=== PATIENT | male | born 1980 | race Caucasian/White ===

== ENCOUNTER 2018-06-08 10:30 | Outpatient (RCR) | payer MEDICARE, OTHER, MEDICAID, SELFPAY ==
--- NOTE | 2018-04-25 13:20 | PT.OIE ---
Current Diagnoses Low back pain (04/25/18) Provider Visit Care Team Role Provider Type Dariela Garcia PA-C Attending Provider Advanced Practioner Clinician Family Provider Primary Care Provider Specialty: Internal Medicine Address: [address] [place] [address], [facility] Email: Physical Therapy Initial Evaluation PT-OP-A Visit Information Start: 04/25/18 10:30 Freq: Status: Active Protocol: Document 04/25/18 10:35 EA (Rec: 04/25/18 11:16 EA [id number]) Out-Patient Physical Therapy Visit Information Visit Information Visit Type Initial Evaluation Visit Start Time 09:45 Visit Stop Time 09:15 Total Visit Minutes 30 Visit Number 1 Evaluation Information Evaluation Date 04/25/18 PT-OP-B Current Condition Start: 04/25/18 10:30 Freq: Status: Active Protocol: Document 04/25/18 10:35 EA (Rec: 04/25/18 11:16 EA [id number]) Current Condition History of Current Condition Onset Date 2 months ago Current Complaints Right upper lumbar localized dull aching pain. History of Current Condition Present condition started 2 months ago with no history of injury; states pain suddenly appeared in the morning upon waking up. Pain initially is mild and intinsified 2 weeks after the onset. Patient reports went to see her doctor and given mucle relaxant and feels it helps in the past few days. Patient reports morning back stiffness with pain and slolwy decrease once mobilize during the day. No x-ray or imaging performed. Current diagnosis: depression, Bipolar p/d, hypothyroid Prior Treatments and Tests Pain medication (ongoing): see chart for meds. 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 Prior Functional Status Baseline Function- ADL's Independent Baseline Function- Mobility Independent Current Functional Impairments (Reported) Functional Limitations- ADL's Indep with increased time. Personal Factors Other Personal Factors That May Effect Depression Therapy/Recovery PT-OP-C Subjective Start: 04/25/18 10:30 Freq: Status: Active Protocol: Document 04/25/18 10:35 EA (Rec: 04/25/18 11:16 EA [id number]) OP-PT Subjective Patient Comments Patient Comments C/O of bed mobility, bending, and lifting difficulty due to intermittent localized dull pain to right upper lumbar rated 7/10 at worst and 3/10 at best. Patient Reported Progress Improving Patient Questionnaires Oswestry Low Back Index Oswestry Score 6 Oswestry Impairment 1 to 19% Impaired (Score 1-19) OP-PT Pain Assessment Location Right Lower Back Intensity 3 Scale Used Numeric (1 - 10) Description Dull Frequency Intermittent Pain Aggravating Factors ADL's Bending Lifting Pain Alleviating Factors Inactivity Rest Patient Stated Pain Goal 0 PT-OP-F Manual Assessment Start: 04/25/18 10:30 Freq: Status: Active Protocol: Document 04/25/18 11:45 EA (Rec: 04/25/18 13:10 EA [id number]) Manual Assessments Soft Tissue Assessment Soft Tissue Mobility Assessment Soft tissue tightness to both lumbar side flexors, lumbar flexors, QL; Hip flexors, hamstrings and IT band Joint Mobility Assessment Joint Mobility Assessment Limited right AP joint glide. PT-OP-H Neuro Start: 04/25/18 10:30 Freq: Status: Active Protocol: Document 04/25/18 11:45 EA (Rec: 04/25/18 13:10 EA [id number]) Sensation Evaluation Gross Sensation Gross Sensation WNL PT-OP-J Posture/Palpation/Skin Start: 04/25/18 10:30 Freq: Status: Active Protocol: Document 04/25/18 11:45 EA (Rec: 04/25/18 13:10 EA [id number]) Posture Evaluation Position Standing Evaluation View Post/lateral L-Spine Posture Increased Lordosis Pelvis Posture Anteriorly Tilted Palpation Assessment Location One Palpation Location Right paralumabrs, QL Palpation Findings Soft Tissue Tightness Tenderness PT-OP-K Range of Motion Start: 04/25/18 10:30 Freq: Status: Active Protocol: Document 04/25/18 11:45 EA (Rec: 04/25/18 13:10 EA [id number]) Lumbar Spine Range of Motion Lumbar Spine Active Degrees Testing Position standing Flexion 45 Extension 30 Rotation Left 40 Rotation Right 40 Lateral Flexion Left 18 Lateral Flexion Right 20 ROM Limitations Soft Tissue Tightness Comments Pain increased with left bending. PT-OP-L Special Tests Start: 04/25/18 10:30 Freq: Status: Active Protocol: Document 04/25/18 11:45 EA (Rec: 04/25/18 13:10 EA [id number]) Special Tests Lumbar Spine Special Tests Niranjan Test Results tight rectus femoris Straight Leg Raise Test Results Pain localized to lumbar at 45 degrees active Standing Flexion Test Results aggravates symptoms Hip Special Tests Piriformis Test Results tight piriformis PT-OP-M Strength Start: 04/25/18 10:30 Freq: Status: Active Protocol: Document 04/25/18 11:45 EA (Rec: 04/25/18 13:10 EA [id number]) Trunk Strength Trunk Manual Muscle Testing Flexion 3- Fair- Extension 3 Fair Rotation Left 3 Fair Rotation Right 3 Fair Lateral Flexion Left 3 Fair Lateral Flexion Right 3 Fair PT-OP-T Assessment and Plan Start: 04/25/18 10:30 Freq: Status: Active Protocol: Document 04/25/18 11:45 EA (Rec: 04/25/18 13:10 EA [id number]) Physical Therapy Assessment Rehab Potential Rehabilitation Potential Good Evaluation Complexity Number of Personal Factors/Comorbidities 1-2 Number of Body Systems Impaired 1-2 Clinical Presentation at Evaluation Stable Impairments Impairments Activity Tolerance Pain Posture ROM Strength Other Concerns Barriers to Rehabilitation depression Goals Four Impairment Weakness to lumbar flexors and side flexors Intermediate Goal (LTG) Patient will exhibit gross MMT to Lumbar flexors, side flexors with at least 4/5 LTG Duration 4 wks Three Impairment Pain scale of 3/10 at best Intermediate Goal (LTG) Patient will report low back PS of 0/10 LTG Duration 4 wks Two Impairment Decreased Lumbosacral SF, Flexion ROM Intermediate Goal (LTG) Patient will increase lumbar ROM without discomfort to enhance functional mobility LTG Duration 4 wks One Impairment Grade 2 tenderness to right paralumbars and QL Intermediate Goal (LTG) Patient will exhibit no tenderness to right paralumbars and QL LTG Duration 4 wks Assessment Summary Assessment Pleasant 37 y/o male patient who exhibits signs and symptoms consistent with lumbar strain with possible facet joint involvement but no neurogenic involvement. Patient Limited ROM and strength with pain/ discomfort limits patient's ability to perform usual ADLs. Bending, lifting and prolong sitting are some of the activities that are impaired at this time. Patient will benefit with skilled PT to address the above mentioned deficits and reach high functional mobility without limitation. Physical Therapy Plan Frequency and Duration Frequency of Treatment 2x/Week Plan of Care Start Date 04/25/18 Plan of Care End Date 06/19/18 Therapeutic Interventions Therapeutic Interventions Home Exercise Program Joint Mobilizations Manual Therapy Self-Care/Home Management Soft Tissue Mobilization Modalities Cold Pack/Ice Massage Electric Stimulation Hot Packs Traction- Mechanical Ultrasound Next Visit Focus/Plan Next Note Type Treatment Note Next Visit Plan Provide HEP. Decrease symptoms , improve lumbar ROM. Please Sign and Return: I have reviewed this Plan of Care and certify that the skilled therapy services above are required to meet the patient?s needs. Physician Signature Date Printed Name and Credentials Clinical Instructor Signature Printed Name and Credentials
--- NOTE | 2018-05-02 15:08 | PT.OTN ---
Current Diagnoses Low back pain (05/02/18) Physical Therapy Treatment Note PT-OP-A Visit Information Start: 04/25/18 10:30 Freq: Status: Active Protocol: Document 05/02/18 13:34 EA (Rec: 05/02/18 13:43 EA [id number]) Out-Patient Physical Therapy Visit Information Visit Information Visit Type Treatment Note Total Visit Minutes 58 Visit Number 2 PT-OP-B Current Condition Start: 04/25/18 10:30 Freq: Status: Active Protocol: Document 04/25/18 10:35 EA (Rec: 04/25/18 11:16 EA [id number]) Current Condition History of Current Condition Onset Date 2 months ago Current Complaints Right upper lumbar localized dull aching pain. History of Current Condition Present condition started 2 months ago with no history of injury; states pain suddenly appeared in the morning upon waking up. Pain initially is mild and intinsified 2 weeks after the onset. Patient reports went to see her doctor and given mucle relaxant and feels it helps in the past few days. Patient reports morning back stiffness with pain and slolwy decrease once mobilize during the day. No x-ray or imaging performed. Current diagnosis: depression, Bipolar p/d, hypothyroid Prior Treatments and Tests Pain medication (ongoing): see chart for meds. 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 Prior Functional Status Baseline Function- ADL's Independent Baseline Function- Mobility Independent Current Functional Impairments (Reported) Functional Limitations- ADL's Indep with increased time. Personal Factors Other Personal Factors That May Effect Depression Therapy/Recovery PT-OP-C Subjective Start: 04/25/18 10:30 Freq: Status: Active Protocol: Document 05/02/18 13:34 EA (Rec: 05/02/18 13:43 EA [id number]) OP-PT Subjective Patient Comments Patient Comments Patient reports low back pain still present. PT-OP-F Manual Assessment Start: 04/25/18 10:30 Freq: Status: Active Protocol: Document 04/25/18 11:45 EA (Rec: 04/25/18 13:10 EA [id number]) Manual Assessments Soft Tissue Assessment Soft Tissue Mobility Assessment Soft tissue tightness to both lumbar side flexors, lumbar flexors, QL; Hip flexors, hamstrings and IT band Joint Mobility Assessment Joint Mobility Assessment Limited right AP joint glide. PT-OP-H Neuro Start: 04/25/18 10:30 Freq: Status: Active Protocol: Document 04/25/18 11:45 EA (Rec: 04/25/18 13:10 EA [id number]) Sensation Evaluation Gross Sensation Gross Sensation WNL PT-OP-J Posture/Palpation/Skin Start: 04/25/18 10:30 Freq: Status: Active Protocol: Document 04/25/18 11:45 EA (Rec: 04/25/18 13:10 EA [id number]) Posture Evaluation Position Standing Evaluation View Post/lateral L-Spine Posture Increased Lordosis Pelvis Posture Anteriorly Tilted Palpation Assessment Location One Palpation Location Right paralumabrs, QL Palpation Findings Soft Tissue Tightness Tenderness PT-OP-K Range of Motion Start: 04/25/18 10:30 Freq: Status: Active Protocol: Document 04/25/18 11:45 EA (Rec: 04/25/18 13:10 EA [id number]) Lumbar Spine Range of Motion Lumbar Spine Active Degrees Testing Position standing Flexion 45 Extension 30 Rotation Left 40 Rotation Right 40 Lateral Flexion Left 18 Lateral Flexion Right 20 ROM Limitations Soft Tissue Tightness Comments Pain increased with left bending. PT-OP-L Special Tests Start: 04/25/18 10:30 Freq: Status: Active Protocol: Document 04/25/18 11:45 EA (Rec: 04/25/18 13:10 EA [id number]) Special Tests Lumbar Spine Special Tests Niranjan Test Results tight rectus femoris Straight Leg Raise Test Results Pain localized to lumbar at 45 degrees active Standing Flexion Test Results aggravates symptoms Hip Special Tests Piriformis Test Results tight piriformis PT-OP-M Strength Start: 04/25/18 10:30 Freq: Status: Active Protocol: Document 04/25/18 11:45 EA (Rec: 04/25/18 13:10 EA [id number]) Trunk Strength Trunk Manual Muscle Testing Flexion 3- Fair- Extension 3 Fair Rotation Left 3 Fair Rotation Right 3 Fair Lateral Flexion Left 3 Fair Lateral Flexion Right 3 Fair PT-OP-Q Treatments Start: 04/25/18 10:30 Freq: Status: Active Protocol: Document 05/02/18 13:34 EA (Rec: 05/02/18 13:43 EA [id number]) Cardio Equipment Recumbent Stepper (Sci-Fit) Duration (Minutes) 5 Resistance 2 Therapeutic Exercises Supine Exercises 1 Supine Exercise Name Knee to chest single to bilateral Reps/Minutes x 15 SH x 3 reps Sitting Exercises 1 Sitting Exercise Name Low back stretch Reps/Minutes x 15 SH x 3 reps Comments Floor reaching Standing Exercises 1 Standing Exercise Name R QL stretch Reps/Minutes x 30SH x 2 reps Manual Therapy Treatment Soft Tissue Mobilization 1 Body Location Right palumbars Intensity/Depth Moderate Body Position Prone Self-Care/Home Management Treatment Education Patient Education Body Mechanics Home Exercise Program Joint Protection Pain Management Posture PT-OP-R Modalities Start: 04/25/18 10:30 Freq: Status: Active Protocol: Document 05/02/18 13:34 EA (Rec: 05/02/18 13:43 EA [id number]) Electric Stimulation Electric Stimulation Interferential Current (IFC) Body Location right paralumbars/QL Duration (Minutes) 15 Patient Position Prone Combined With Heat/Cold Hot Pack Ultrasound Therapy Treatment Right Back Treatment Duration (minutes) 8 Frequency Setting (mHz) 1 Intensity Setting (w/cm2) 1.2 Comments Paralumbars PT-OP-T Assessment and Plan Start: 04/25/18 10:30 Freq: Status: Active Protocol: Document 05/02/18 13:34 EA (Rec: 05/02/18 13:43 EA [id number]) Physical Therapy Assessment Assessment Summary Assessment Tolerated treatment well. Physical Therapy Plan Next Visit Focus/Plan Next Visit Plan Cont. with HEP Please Sign and Return: I have reviewed this Plan of Care and certify that the skilled therapy services above are required to meet the patient?s needs. Physician Signature Date Printed Name and Credentials Clinical Instructor Signature Printed Name and Credentials
--- NOTE | 2018-05-07 14:29 | PT.OTN ---
Current Diagnoses Low back pain (05/07/18) Physical Therapy Treatment Note PT-OP-A Visit Information Start: 04/25/18 10:30 Freq: Status: Active Protocol: Document 05/07/18 10:30 AMB (Rec: 05/07/18 14:28 AMB [id number]) Out-Patient Physical Therapy Visit Information Visit Information Visit Type Treatment Note Visit Start Time 10:30 Visit Stop Time 11:15 Total Visit Minutes 55 Visit Number 3 Evaluation Information Evaluation Date 04/25/18 PT-OP-B Current Condition Start: 04/25/18 10:30 Freq: Status: Active Protocol: Document 04/25/18 10:35 EA (Rec: 04/25/18 11:16 EA [id number]) Current Condition History of Current Condition Onset Date 2 months ago Current Complaints Right upper lumbar localized dull aching pain. History of Current Condition Present condition started 2 months ago with no history of injury; states pain suddenly appeared in the morning upon waking up. Pain initially is mild and intinsified 2 weeks after the onset. Patient reports went to see her doctor and given mucle relaxant and feels it helps in the past few days. Patient reports morning back stiffness with pain and slolwy decrease once mobilize during the day. No x-ray or imaging performed. Current diagnosis: depression, Bipolar p/d, hypothyroid Prior Treatments and Tests Pain medication (ongoing): see chart for meds. 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 Prior Functional Status Baseline Function- ADL's Independent Baseline Function- Mobility Independent Current Functional Impairments (Reported) Functional Limitations- ADL's Indep with increased time. Personal Factors Other Personal Factors That May Effect Depression Therapy/Recovery PT-OP-C Subjective Start: 04/25/18 10:30 Freq: Status: Active Protocol: Document 05/07/18 10:30 AMB (Rec: 05/07/18 14:28 AMB [id number]) OP-PT Subjective Patient Comments Patient Comments pt states he was a little sore after last visit. He states his back has been feeling better overall, but he has not been able to return to running yet. He did note back pain when he was playing with his 12 yo son (his son jumped on him). PT-OP-F Manual Assessment Start: 04/25/18 10:30 Freq: Status: Active Protocol: Document 04/25/18 11:45 EA (Rec: 04/25/18 13:10 EA [id number]) Manual Assessments Soft Tissue Assessment Soft Tissue Mobility Assessment Soft tissue tightness to both lumbar side flexors, lumbar flexors, QL; Hip flexors, hamstrings and IT band Joint Mobility Assessment Joint Mobility Assessment Limited right AP joint glide. PT-OP-H Neuro Start: 04/25/18 10:30 Freq: Status: Active Protocol: Document 04/25/18 11:45 EA (Rec: 04/25/18 13:10 EA [id number]) Sensation Evaluation Gross Sensation Gross Sensation WNL PT-OP-J Posture/Palpation/Skin Start: 04/25/18 10:30 Freq: Status: Active Protocol: Document 04/25/18 11:45 EA (Rec: 04/25/18 13:10 EA [id number]) Posture Evaluation Position Standing Evaluation View Post/lateral L-Spine Posture Increased Lordosis Pelvis Posture Anteriorly Tilted Palpation Assessment Location One Palpation Location Right paralumabrs, QL Palpation Findings Soft Tissue Tightness Tenderness PT-OP-K Range of Motion Start: 04/25/18 10:30 Freq: Status: Active Protocol: Document 04/25/18 11:45 EA (Rec: 04/25/18 13:10 EA [id number]) Lumbar Spine Range of Motion Lumbar Spine Active Degrees Testing Position standing Flexion 45 Extension 30 Rotation Left 40 Rotation Right 40 Lateral Flexion Left 18 Lateral Flexion Right 20 ROM Limitations Soft Tissue Tightness Comments Pain increased with left bending. PT-OP-L Special Tests Start: 04/25/18 10:30 Freq: Status: Active Protocol: Document 04/25/18 11:45 EA (Rec: 04/25/18 13:10 EA [id number]) Special Tests Lumbar Spine Special Tests Niranjan Test Results tight rectus femoris Straight Leg Raise Test Results Pain localized to lumbar at 45 degrees active Standing Flexion Test Results aggravates symptoms Hip Special Tests Piriformis Test Results tight piriformis PT-OP-M Strength Start: 04/25/18 10:30 Freq: Status: Active Protocol: Document 04/25/18 11:45 EA (Rec: 04/25/18 13:10 EA [id number]) Trunk Strength Trunk Manual Muscle Testing Flexion 3- Fair- Extension 3 Fair Rotation Left 3 Fair Rotation Right 3 Fair Lateral Flexion Left 3 Fair Lateral Flexion Right 3 Fair PT-OP-Q Treatments Start: 04/25/18 10:30 Freq: Status: Active Protocol: Document 05/07/18 10:30 AMB (Rec: 05/07/18 14:28 AMB [id number]) Cardio Equipment Recumbent Stepper (Sci-Fit) Duration (Minutes) 5 Resistance 5 Gym Equipment Shuttle Recovery Unilateral Squats Resistance 50# Shuttle Recovery Platform Stable Reps/Time 5 min Bilateral Squats Details hopping Resistance 50# Shuttle Recovery Platform Stable Reps/Time 5 min Therapeutic Exercises Supine Exercises 2 Supine Exercise Name 90-90 tap down Reps/Minutes 1x10 Sidelying Exercises 1 Sidelying Exercise Name SLR abd Side bilateral Reps/Minutes 2 x 10 Standing Exercises 4 Standing Exercise Name hamstring stretch Side bilateral Reps/Minutes 30x2 Comments foot on chair, avoid kyphosis 3 Standing Exercise Name calf stretch Side bilateral Reps/Minutes 30x2 Comments SABRINA 2 Standing Exercise Name wall squats Reps/Minutes 5 sec hold x 5 Therapeutic Activity Therapeutic Activity 1 Name lift training Reps/Minutes 5 Comments 20# floor to waist height PT-OP-R Modalities Start: 04/25/18 10:30 Freq: Status: Active Protocol: Document 05/07/18 10:30 AMB (Rec: 05/07/18 14:28 AMB [email or web address]) Hot Pack/Cold Pack Treatment Hot Pack Location low back Patient Position Prone Treatment Duration (minutes) 10 PT-OP-T Assessment and Plan Start: 04/25/18 10:30 Freq: Status: Active Protocol: Document 05/07/18 10:30 AMB (Rec: 05/07/18 14:28 AMB [email or web address]) Physical Therapy Assessment Assessment Summary Assessment Pt with improving back pain, but unable to return to previous function (running) continued weakness in core/hip . Physical Therapy Plan Frequency and Duration Frequency of Treatment 2x/Week Plan of Care Start Date 04/25/18 Plan of Care End Date 06/19/18 Next Visit Focus/Plan Next Note Type Treatment Note Next Visit Plan progress HEP- safe return to running warm up/ cool down
--- NOTE | 2018-05-22 17:59 | PT.OTN ---
Current Diagnoses Low back pain (05/22/18) Physical Therapy Treatment Note PT-OP-A Visit Information Start: 04/25/18 10:30 Freq: Status: Active Protocol: Document 05/22/18 17:00 GGD (Rec: 05/22/18 17:58 GGD [email or web address]) Out-Patient Physical Therapy Visit Information Visit Information Visit Type Treatment Note Visit Start Time 16:45 Visit Stop Time 17:35 Total Visit Minutes 50 Visit Number 4 Number of WHEEL ASSEMBLER Visits 1 Evaluation Information Evaluation Date 04/25/18 PT-OP-B Current Condition Start: 04/25/18 10:30 Freq: Status: Active Protocol: Document 04/25/18 10:35 EA (Rec: 04/25/18 11:16 EA [id number]) Current Condition History of Current Condition Onset Date 2 months ago Current Complaints Right upper lumbar localized dull aching pain. History of Current Condition Present condition started 2 months ago with no history of injury; states pain suddenly appeared in the morning upon waking up. Pain initially is mild and intinsified 2 weeks after the onset. Patient reports went to see her doctor and given mucle relaxant and feels it helps in the past few days. Patient reports morning back stiffness with pain and slolwy decrease once mobilize during the day. No x-ray or imaging performed. Current diagnosis: depression, Bipolar p/d, hypothyroid Prior Treatments and Tests Pain medication (ongoing): see chart for meds. 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 Prior Functional Status Baseline Function- ADL's Independent Baseline Function- Mobility Independent Current Functional Impairments (Reported) Functional Limitations- ADL's Indep with increased time. Personal Factors Other Personal Factors That May Effect Depression Therapy/Recovery PT-OP-C Subjective Start: 04/25/18 10:30 Freq: Status: Active Protocol: Document 05/22/18 17:00 GGD (Rec: 05/22/18 17:58 GGD [email or web address]) OP-PT Subjective Patient Comments Patient Comments Pt states that he is stiff this morning. He did like the increase in leg exercise last visit. PT-OP-F Manual Assessment Start: 04/25/18 10:30 Freq: Status: Active Protocol: Document 04/25/18 11:45 EA (Rec: 04/25/18 13:10 EA [id number]) Manual Assessments Soft Tissue Assessment Soft Tissue Mobility Assessment Soft tissue tightness to both lumbar side flexors, lumbar flexors, QL; Hip flexors, hamstrings and IT band Joint Mobility Assessment Joint Mobility Assessment Limited right AP joint glide. PT-OP-H Neuro Start: 04/25/18 10:30 Freq: Status: Active Protocol: Document 04/25/18 11:45 EA (Rec: 04/25/18 13:10 EA [id number]) Sensation Evaluation Gross Sensation Gross Sensation WNL PT-OP-J Posture/Palpation/Skin Start: 04/25/18 10:30 Freq: Status: Active Protocol: Document 04/25/18 11:45 EA (Rec: 04/25/18 13:10 EA [id number]) Posture Evaluation Position Standing Evaluation View Post/lateral L-Spine Posture Increased Lordosis Pelvis Posture Anteriorly Tilted Palpation Assessment Location One Palpation Location Right paralumabrs, QL Palpation Findings Soft Tissue Tightness Tenderness PT-OP-K Range of Motion Start: 04/25/18 10:30 Freq: Status: Active Protocol: Document 04/25/18 11:45 EA (Rec: 04/25/18 13:10 EA [id number]) Lumbar Spine Range of Motion Lumbar Spine Active Degrees Testing Position standing Flexion 45 Extension 30 Rotation Left 40 Rotation Right 40 Lateral Flexion Left 18 Lateral Flexion Right 20 ROM Limitations Soft Tissue Tightness Comments Pain increased with left bending. PT-OP-L Special Tests Start: 04/25/18 10:30 Freq: Status: Active Protocol: Document 04/25/18 11:45 EA (Rec: 04/25/18 13:10 EA [id number]) Special Tests Lumbar Spine Special Tests Niranjan Test Results tight rectus femoris Straight Leg Raise Test Results Pain localized to lumbar at 45 degrees active Standing Flexion Test Results aggravates symptoms Hip Special Tests Piriformis Test Results tight piriformis PT-OP-M Strength Start: 04/25/18 10:30 Freq: Status: Active Protocol: Document 04/25/18 11:45 EA (Rec: 04/25/18 13:10 EA [id number]) Trunk Strength Trunk Manual Muscle Testing Flexion 3- Fair- Extension 3 Fair Rotation Left 3 Fair Rotation Right 3 Fair Lateral Flexion Left 3 Fair Lateral Flexion Right 3 Fair PT-OP-Q Treatments Start: 04/25/18 10:30 Freq: Status: Active Protocol: Document 05/22/18 17:00 GGD (Rec: 05/22/18 17:58 GGD [email or web address]) Cardio Equipment Recumbent Stepper (Sci-Fit) Duration (Minutes) 5 Resistance 5 Gym Equipment Shuttle Recovery Unilateral Squats Resistance 75# Shuttle Recovery Platform Stable Reps/Time 5 min Bilateral Squats Details hopping Resistance 50# Shuttle Recovery Platform Stable Reps/Time 5 min Therapeutic Exercises Supine Exercises 3 Supine Exercise Name bridges with marches Reps/Minutes 20 2 Supine Exercise Name 90-90 tap down Reps/Minutes 1x10 Sidelying Exercises 2 Sidelying Exercise Name Clamshells Side bilateral Reps/Minutes 20 1 Sidelying Exercise Name SLR abd Side bilateral Reps/Minutes 2 x 10 Standing Exercises 4 Standing Exercise Name hamstring stretch Side bilateral Reps/Minutes 30x2 Comments foot on chair, avoid kyphosis 3 Standing Exercise Name calf stretch Side bilateral Reps/Minutes 30x2 Comments SABRINA 2 Standing Exercise Name wall squats Reps/Minutes 5 sec hold x 5 PT-OP-R Modalities Start: 04/25/18 10:30 Freq: Status: Active Protocol: Document 05/22/18 17:00 GGD (Rec: 05/22/18 17:58 GGD [email or web address]) Electric Stimulation Electric Stimulation Interferential Current (IFC) Body Location L/S paralumbars/QL Duration (Minutes) 15 Patient Position Prone Combined With Heat/Cold Hot Pack PT-OP-T Assessment and Plan Start: 04/25/18 10:30 Freq: Status: Active Protocol: Document 05/22/18 17:00 GGD (Rec: 05/22/18 17:58 GGD [email or web address]) Physical Therapy Assessment Goals Four Impairment Weakness to lumbar flexors and side flexors Longterm Goal (LTG) Patient will exhibit gross MMT to Lumbar flexors, side flexors with at least 4/5 LTG Duration 4 wks Three Impairment Pain scale of 3/10 at best Rn Admissions Goal (LTG) Patient will report low back PS of 0/10 LTG Duration 4 wks Two Impairment Decreased Lumbosacral SF, Flexion ROM Rn Admissions Goal (LTG) Patient will increase lumbar ROM without discomfort to enhance functional mobility LTG Duration 4 wks One Impairment Grade 2 tenderness to right paralumbars and QL Rn Admissions Goal (LTG) Patient will exhibit no tenderness to right paralumbars and QL LTG Duration 4 wks Assessment Summary Assessment Pt improving with ROM and pain , He fatigues quickly, but able Physical Therapy Plan Frequency and Duration Frequency of Treatment 2x/Week Plan of Care Start Date 04/25/18 Plan of Care End Date 06/19/18 Next Visit Focus/Plan Next Note Type Treatment Note Next Visit Plan progress HEP- and strengthening.
--- NOTE | 2018-06-01 13:56 | PT.OTN ---
Current Diagnoses Low back pain (06/01/18) Physical Therapy Treatment Note PT-OP-A Visit Information Start: 04/25/18 10:30 Freq: Status: Active Protocol: Document 06/01/18 10:30 AMB (Rec: 06/01/18 13:55 AMB [email or web address]) Out-Patient Physical Therapy Visit Information Visit Information Visit Type Treatment Note Visit Start Time 10:30 Visit Stop Time 11:15 Total Visit Minutes 45 Visit Number 5 Number of COMMUNICATIONS FIELD TECHNICIAN Visits 0 Evaluation Information Evaluation Date 04/25/18 PT-OP-B Current Condition Start: 04/25/18 10:30 Freq: Status: Active Protocol: Document 04/25/18 10:35 EA (Rec: 04/25/18 11:16 EA [id number]) Current Condition History of Current Condition Onset Date 2 months ago Current Complaints Right upper lumbar localized dull aching pain. History of Current Condition Present condition started 2 months ago with no history of injury; states pain suddenly appeared in the morning upon waking up. Pain initially is mild and intinsified 2 weeks after the onset. Patient reports went to see her doctor and given mucle relaxant and feels it helps in the past few days. Patient reports morning back stiffness with pain and slolwy decrease once mobilize during the day. No x-ray or imaging performed. Current diagnosis: depression, Bipolar p/d, hypothyroid Prior Treatments and Tests Pain medication (ongoing): see chart for meds. 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 Prior Functional Status Baseline Function- ADL's Independent Baseline Function- Mobility Independent Current Functional Impairments (Reported) Functional Limitations- ADL's Indep with increased time. Personal Factors Other Personal Factors That May Effect Depression Therapy/Recovery PT-OP-C Subjective Start: 04/25/18 10:30 Freq: Status: Active Protocol: Document 06/01/18 10:30 AMB (Rec: 06/01/18 13:55 AMB [email or web address]) OP-PT Subjective Patient Comments Patient Comments Pt continues to notice stiffness in the AM, sometimes so much that he cannot put his shoes on (has to wear slip ons). Has not yet returned to running. PT-OP-F Manual Assessment Start: 04/25/18 10:30 Freq: Status: Active Protocol: Document 04/25/18 11:45 EA (Rec: 04/25/18 13:10 EA [id number]) Manual Assessments Soft Tissue Assessment Soft Tissue Mobility Assessment Soft tissue tightness to both lumbar side flexors, lumbar flexors, QL; Hip flexors, hamstrings and IT band Joint Mobility Assessment Joint Mobility Assessment Limited right AP joint glide. PT-OP-H Neuro Start: 04/25/18 10:30 Freq: Status: Active Protocol: Document 04/25/18 11:45 EA (Rec: 04/25/18 13:10 EA [id number]) Sensation Evaluation Gross Sensation Gross Sensation WNL PT-OP-J Posture/Palpation/Skin Start: 04/25/18 10:30 Freq: Status: Active Protocol: Document 04/25/18 11:45 EA (Rec: 04/25/18 13:10 EA [id number]) Posture Evaluation Position Standing Evaluation View Post/lateral L-Spine Posture Increased Lordosis Pelvis Posture Anteriorly Tilted Palpation Assessment Location One Palpation Location Right paralumabrs, QL Palpation Findings Soft Tissue Tightness Tenderness PT-OP-K Range of Motion Start: 04/25/18 10:30 Freq: Status: Active Protocol: Document 04/25/18 11:45 EA (Rec: 04/25/18 13:10 EA [id number]) Lumbar Spine Range of Motion Lumbar Spine Active Degrees Testing Position standing Flexion 45 Extension 30 Rotation Left 40 Rotation Right 40 Lateral Flexion Left 18 Lateral Flexion Right 20 ROM Limitations Soft Tissue Tightness Comments Pain increased with left bending. PT-OP-L Special Tests Start: 04/25/18 10:30 Freq: Status: Active Protocol: Document 04/25/18 11:45 EA (Rec: 04/25/18 13:10 EA [id number]) Special Tests Lumbar Spine Special Tests Niranjan Test Results tight rectus femoris Straight Leg Raise Test Results Pain localized to lumbar at 45 degrees active Standing Flexion Test Results aggravates symptoms Hip Special Tests Piriformis Test Results tight piriformis PT-OP-M Strength Start: 04/25/18 10:30 Freq: Status: Active Protocol: Document 04/25/18 11:45 EA (Rec: 04/25/18 13:10 EA [id number]) Trunk Strength Trunk Manual Muscle Testing Flexion 3- Fair- Extension 3 Fair Rotation Left 3 Fair Rotation Right 3 Fair Lateral Flexion Left 3 Fair Lateral Flexion Right 3 Fair PT-OP-Q Treatments Start: 04/25/18 10:30 Freq: Status: Active Protocol: Document 06/01/18 10:30 AMB (Rec: 06/01/18 13:55 AMB [email or web address]) Cardio Equipment Elliptical Duration (Minutes) 3 Resistance 2 Bicycle (Upright) Duration (Minutes) 5 Resistance 4 Therapeutic Exercises Supine Exercises 6 Supine Exercise Name trunk rotation Comments in hooklying 5 Supine Exercise Name hamstring stretch Reps/Minutes 30x4 4 Supine Exercise Name piriformis stretch Reps/Minutes 30x2 2 Supine Exercise Name 90-90 tap down Reps/Minutes 1x10 Sidelying Exercises 2 Sidelying Exercise Name Clamshells Side bilateral Reps/Minutes 20 1 Sidelying Exercise Name SLR abd Side bilateral Reps/Minutes 2 x 10 Standing Exercises 4 Standing Exercise Name hamstring stretch Side bilateral Reps/Minutes 30x2 Comments foot on chair, avoid kyphosis 3 Standing Exercise Name calf stretch Side bilateral Reps/Minutes 30x2 Comments SABRINA PT-OP-R Modalities Start: 04/25/18 10:30 Freq: Status: Active Protocol: Document 06/01/18 10:30 AMB (Rec: 06/01/18 13:55 AMB [email or web address]) Hot Pack/Cold Pack Treatment Hot Pack Location low back Patient Position Prone Treatment Duration (minutes) 10 PT-OP-T Assessment and Plan Start: 04/25/18 10:30 Freq: Status: Active Protocol: Document 06/01/18 10:30 AMB (Rec: 06/01/18 13:55 AMB [email or web address]) Physical Therapy Assessment Assessment Summary Assessment Pt continues to fatigue quickly (leg fatigue with elliptical). Continue to progress core stability and flexibility. Physical Therapy Plan Frequency and Duration Frequency of Treatment 2x/Week Plan of Care Start Date 04/25/18 Plan of Care End Date 06/19/18 Next Visit Focus/Plan Next Note Type Treatment Note Next Visit Plan Begin finalizing HEP
--- NOTE | 2018-06-08 11:57 | PT.OTN ---
Current Diagnoses Low back pain (06/08/18) Physical Therapy Treatment Note PT-OP-A Visit Information Start: 04/25/18 10:30 Freq: Status: Active Protocol: Document 06/08/18 11:15 AMB (Rec: 06/08/18 11:48 AMB [email or web address]) Out-Patient Physical Therapy Visit Information Visit Information Visit Type Discharge Summary Visit Start Time 10:30 Visit Stop Time 11:15 Total Visit Minutes 45 Visit Number 6 Evaluation Information Evaluation Date 04/25/18 PT-OP-B Current Condition Start: 04/25/18 10:30 Freq: Status: Active Protocol: Document 04/25/18 10:35 EA (Rec: 04/25/18 11:16 EA [id number]) Current Condition History of Current Condition Onset Date 2 months ago Current Complaints Right upper lumbar localized dull aching pain. History of Current Condition Present condition started 2 months ago with no history of injury; states pain suddenly appeared in the morning upon waking up. Pain initially is mild and intinsified 2 weeks after the onset. Patient reports went to see her doctor and given mucle relaxant and feels it helps in the past few days. Patient reports morning back stiffness with pain and slolwy decrease once mobilize during the day. No x-ray or imaging performed. Current diagnosis: depression, Bipolar p/d, hypothyroid Prior Treatments and Tests Pain medication (ongoing): see chart for meds. 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 Prior Functional Status Baseline Function- ADL's Independent Baseline Function- Mobility Independent Current Functional Impairments (Reported) Functional Limitations- ADL's Indep with increased time. Personal Factors Other Personal Factors That May Effect Depression Therapy/Recovery PT-OP-C Subjective Start: 04/25/18 10:30 Freq: Status: Active Protocol: Document 06/08/18 11:15 AMB (Rec: 06/08/18 11:48 AMB [email or web address]) OP-PT Subjective Patient Comments Patient Comments The patient states he is ready to be discharged. He has not returned to running. Feeling pretty good today. PT-OP-F Manual Assessment Start: 04/25/18 10:30 Freq: Status: Active Protocol: Document 04/25/18 11:45 EA (Rec: 04/25/18 13:10 EA [id number]) Manual Assessments Soft Tissue Assessment Soft Tissue Mobility Assessment Soft tissue tightness to both lumbar side flexors, lumbar flexors, QL; Hip flexors, hamstrings and IT band Joint Mobility Assessment Joint Mobility Assessment Limited right AP joint glide. PT-OP-H Neuro Start: 04/25/18 10:30 Freq: Status: Active Protocol: Document 04/25/18 11:45 EA (Rec: 04/25/18 13:10 EA [id number]) Sensation Evaluation Gross Sensation Gross Sensation WNL PT-OP-J Posture/Palpation/Skin Start: 04/25/18 10:30 Freq: Status: Active Protocol: Document 04/25/18 11:45 EA (Rec: 04/25/18 13:10 EA [id number]) Posture Evaluation Position Standing Evaluation View Post/lateral L-Spine Posture Increased Lordosis Pelvis Posture Anteriorly Tilted Palpation Assessment Location One Palpation Location Right paralumabrs, QL Palpation Findings Soft Tissue Tightness Tenderness PT-OP-K Range of Motion Start: 04/25/18 10:30 Freq: Status: Active Protocol: Document 04/25/18 11:45 EA (Rec: 04/25/18 13:10 EA [id number]) Lumbar Spine Range of Motion Lumbar Spine Active Degrees Testing Position standing Flexion 45 Extension 30 Rotation Left 40 Rotation Right 40 Lateral Flexion Left 18 Lateral Flexion Right 20 ROM Limitations Soft Tissue Tightness Comments Pain increased with left bending. PT-OP-L Special Tests Start: 04/25/18 10:30 Freq: Status: Active Protocol: Document 04/25/18 11:45 EA (Rec: 04/25/18 13:10 EA [id number]) Special Tests Lumbar Spine Special Tests Niranjan Test Results tight rectus femoris Straight Leg Raise Test Results Pain localized to lumbar at 45 degrees active Standing Flexion Test Results aggravates symptoms Hip Special Tests Piriformis Test Results tight piriformis PT-OP-M Strength Start: 04/25/18 10:30 Freq: Status: Active Protocol: Document 04/25/18 11:45 EA (Rec: 04/25/18 13:10 EA [id number]) Trunk Strength Trunk Manual Muscle Testing Flexion 3- Fair- Extension 3 Fair Rotation Left 3 Fair Rotation Right 3 Fair Lateral Flexion Left 3 Fair Lateral Flexion Right 3 Fair PT-OP-Q Treatments Start: 04/25/18 10:30 Freq: Status: Active Protocol: Document 06/08/18 11:15 AMB (Rec: 06/08/18 11:48 AMB [email or web address]) Cardio Equipment Bicycle (Upright) Duration (Minutes) 6 Resistance 4 Therapeutic Exercises Supine Exercises 7 Supine Exercise Name double hip flexion isometric Reps/Minutes 5x5 6 Supine Exercise Name trunk rotation Comments in hooklying 5 Supine Exercise Name hamstring stretch Reps/Minutes 30x4 4 Supine Exercise Name piriformis stretch Reps/Minutes 30x2 2 Supine Exercise Name 90-90 tap down Reps/Minutes 1x10 1 Supine Exercise Name Knee to chest single to bilateral Reps/Minutes x 15 SH x 3 reps Sidelying Exercises 1 Sidelying Exercise Name SLR abd Side bilateral Reps/Minutes 2 x 10 Standing Exercises 4 Standing Exercise Name hamstring stretch Side bilateral Reps/Minutes 30x2 Comments foot on chair, avoid kyphosis 3 Standing Exercise Name calf stretch Side bilateral Reps/Minutes 30x2 Comments SABRINA PT-OP-R Modalities Start: 04/25/18 10:30 Freq: Status: Active Protocol: Document 06/01/18 10:30 AMB (Rec: 06/01/18 13:55 AMB [email or web address]) Hot Pack/Cold Pack Treatment Hot Pack Location low back Patient Position Prone Treatment Duration (minutes) 10 PT-OP-T Assessment and Plan Start: 04/25/18 10:30 Freq: Status: Active Protocol: Document 06/08/18 10:35 AMB (Rec: 06/08/18 10:38 AMB [id number]) Physical Therapy Assessment Goals Four Impairment Weakness to lumbar flexors and side flexors Helmet Hat Sweatband Puncher Goal (LTG) Patient will exhibit gross MMT to Lumbar flexors, side flexors with at least 4/5-- MET LTG Duration 4 wks Three Impairment Pain scale of 3/10 at best Usp Goal (LTG) Patient will report low back PS of 0/10-- NOT MET 2/10 at best, up to 5/10 pain LTG Duration 4 wks Two Impairment Decreased Lumbosacral SF, Flexion ROM Usp Goal (LTG) Patient will increase lumbar ROM without discomfort to enhance functional mobility MET LTG Duration 4 wks One Impairment Grade 2 tenderness to right paralumbars and QL Helmet Hat Sweatband Puncher Goal (LTG) Patient will exhibit no tenderness to right paralumbars and QL PROGRESS MADE LTG Duration 4 wks Assessment Summary Assessment The patient reports he is overall feeling better (about 75%) he has been doing his stretches and core exercises. He continues to report back pain (today 2/) but feels ready to independently manage this.
== END 2018-11-22 14:18 ==
LOC: PHYS 10:30
PROVIDERS: Family Provider Physician Assistant; PCP Physician Assistant; Visit Provider Physician Assistant
DX: M54.5 Low back pain (principal)
CPT/HCPCS: 97010; 97014; 97035; 97110; 97140; 97161; G0283

== ENCOUNTER → 2018-10-01 11:15 | Outpatient (CLI) | payer MEDICARE, SELFPAY ==
[2018-10-01 12:29] LABS: Lithium 0.8 mmol/L (0.6-1.2)
[2018-10-01 12:34] LABS: BUN Creatinine Ratio 11.3 (6-22); Blood Urea Nitrogen 9 mg/dL (9-20); Calcium 9.8 mg/dL (8.4-10.2); Carbon Dioxide 28 mmol/L (22-32); Chloride 104 mmol/L (98-107); Estimated Glomerular Filt Rate > 60.0 mL/min (>60); Glucose 92 mg/dL (70-100); HEMOLYSIS < 15 (0-50); Potassium 4.2 mmol/L (3.4-5.1); Sodium 146 mmol/L (137-145)
== END ==
PROVIDERS: Family Provider Physician Assistant; PCP Physician Assistant; Visit Provider Psychiatry & Neurology Psychiatry
DX: F31.75 Bipolar disorder, in partial remission, most recent episode depressed (principal); Z51.81 Encounter for therapeutic drug level monitoring
CPT/HCPCS: 36415; 80048; 80178; 84443

== ENCOUNTER → 2019-02-08 10:25 | Outpatient (CLI) | payer MEDICARE, SELFPAY ==
[2019-02-08 12:37] LABS: BUN Creatinine Ratio 13.8 (6-22); Blood Urea Nitrogen 11 mg/dL (9-20); Carbon Dioxide 25 mmol/L (22-32); Chloride 104 mmol/L (98-107); Estimated Glomerular Filt Rate > 60.0 mL/min (>60); Glucose 97 mg/dL (70-100); HEMOLYSIS < 15 (0-50); Potassium 4.2 mmol/L (3.4-5.1); Sodium 142 mmol/L (137-145)
[2019-02-08 13:05] LABS: Thyroid Stimulating Hormone 3.27 uIU/mL (0.47-4.68)
== END ==
PROVIDERS: PCP Physician Assistant; Visit Provider Psychiatry & Neurology Psychiatry
DX: F31.75 Bipolar disorder, in partial remission, most recent episode depressed (principal); Z51.81 Encounter for therapeutic drug level monitoring
CPT/HCPCS: 36415; 80048; 80178; 84443

== ENCOUNTER → 2019-05-17 09:38 | Outpatient (CLI) | payer MEDICARE, SELFPAY ==
[2019-05-17 10:51] LABS: BUN Creatinine Ratio 17.1 (6-22); Blood Urea Nitrogen 12 mg/dL (9-20); Carbon Dioxide 26 mmol/L (22-32); Chloride 105 mmol/L (98-107); Estimated Glomerular Filt Rate > 60.0 mL/min (>60); Glucose 103 mg/dL (70-100); HEMOLYSIS < 15 (0-50); Sodium 142 mmol/L (137-145)
[2019-05-17 10:54] LABS: Lithium 0.7 mmol/L (0.6-1.2)
[2019-05-17 11:21] LABS: Thyroid Stimulating Hormone 2.22 uIU/mL (0.47-4.68)
== END ==
PROVIDERS: PCP Physician Assistant; Visit Provider Psychiatry & Neurology Psychiatry
DX: F31.75 Bipolar disorder, in partial remission, most recent episode depressed (principal); Z51.81 Encounter for therapeutic drug level monitoring
CPT/HCPCS: 36415; 80048; 80178; 84443

== ENCOUNTER → 2019-10-23 11:09 | Outpatient (CLI) | payer MEDICARE, SELFPAY ==
[2019-10-23 12:29] LABS: Alanine Aminotransferase 15 IU/L (<50); Albumin 4.5 g/dL (3.5-5.0); Albumin Globulin Ratio 1.3 (1.0-2.8); Alkaline Phosphatase 68 U/L (38-126); Aspartate Aminotransferase 19 IU/L (17-59); Bilirubin Total 0.6 mg/dL (0.2-1.3); Blood Urea Nitrogen 12 mg/dL (9-20); Calcium 9.9 mg/dL (8.4-10.2); Carbon Dioxide 23 mmol/L (22-32); Chloride 107 mmol/L (98-107); Cholesterol 148 mg/dL (140-199); Estimated Glomerular Filt Rate > 60.0 mL/min (>60); Globulin 3.4 g/dL (1.7-4.1); Glucose 100 mg/dL (70-100); HDL Cholesterol 33 mg/dL (40-60); HEMOLYSIS < 15 (0-50); LDL Cholesterol Calculated 94 mg/dL (<100); Potassium 3.9 mmol/L (3.4-5.1); Sodium 140 mmol/L (137-145); Total Protein 7.9 g/dL (6.3-8.2); Triglycerides 103 mg/dL (35-150)
[2019-10-23 12:32] LABS: Lithium 0.9 mmol/L (0.6-1.2)
[2019-10-23 13:02] LABS: Thyroid Stimulating Hormone 1.88 uIU/mL (0.47-4.68)
== END ==
PROVIDERS: Family Provider Physician Assistant; PCP Physician Assistant; Visit Provider Psychiatry & Neurology Psychiatry
DX: Z51.81 Encounter for therapeutic drug level monitoring (principal); F31.75 Bipolar disorder, in partial remission, most recent episode depressed
CPT/HCPCS: 36415; 80053; 80061; 80178; 84443

== ENCOUNTER → 2021-01-05 14:51 | Outpatient (ROUT) | payer MEDICARE, SELFPAY ==
[2021-01-05 15:18] LABS: Add Manual Diff / Slide Review NO; Basophils Absolute Auto 100 /uL (0-100); Basophils Percent Auto 1.1 % (0-2); Eosinophils Absolute Auto 200 /uL (0-450); Eosinophils Percent Auto 3.1 % (2-4); Hematocrit 43.3 % (41-53); Hemoglobin 14.5 g/dL (13.5-17.5); Lymphocytes Absolute Auto 2200 /uL (1100-4500); Lymphocytes Percent Auto 33.5 % (25-40); Mean Corpuscular HGB Conc 33.4 % (30-36); Mean Corpuscular Hemoglobin 30.7 PG (26-34); Mean Corpuscular Volume 91.8 fL (80-100); Monocytes Absolute Auto 700 /uL (0-900); Monocytes Percent Auto 10.8 % (3-14); Neutrophils Absolute Auto 3400 /uL (1500-7000); Neutrophils Percent Auto 51.5 % (50-75); Platelet Count 238 X10^3/uL (150-400); Red Blood Cell Count 4.71 X10^6/uL (4.5-5.9); Red Cell Distribution Width 13.4 % (11.6-14.8); White Blood Cell Count 6.6 X10^3/uL (4.5-11.0)
[2021-01-05 15:41] LABS: Lithium 0.5 mmol/L (0.6-1.2)
[2021-01-05 15:48] LABS: Alanine Aminotransferase 23 IU/L (<50); Albumin 4.1 g/dL (3.5-5.0); Albumin Globulin Ratio 1.1 (1.0-2.8); Alkaline Phosphatase 70 U/L (38-126); Aspartate Aminotransferase 23 IU/L (17-59); BUN Creatinine Ratio 21.3 (6-22); Bilirubin Total 0.3 mg/dL (0.2-1.3); Blood Urea Nitrogen 17 mg/dL (9-20); Calcium 9.6 mg/dL (8.4-10.2); Carbon Dioxide 27 mmol/L (22-32); Chloride 106 mmol/L (98-107); Cholesterol 176 mg/dL (140-199); Estimated Glomerular Filt Rate > 60.0 mL/min (>60); Globulin 3.7 g/dL (1.7-4.1); Glucose 101 mg/dL (70-100); HDL Cholesterol 47 mg/dL (40-60); HEMOLYSIS < 15 (0-50); LDL Cholesterol Calculated 99 mg/dL (<100); Potassium 4.5 mmol/L (3.4-5.1); Sodium 137 mmol/L (137-145); Total Protein 7.8 g/dL (6.3-8.2); Triglycerides 151 mg/dL (35-150)
[2021-01-05 16:16] LABS: TSH w/ Reflex to FT4 2.98 uIU/mL (0.47-4.68)
== END ==
PROVIDERS: Family Provider Physician Assistant; PCP Physician Assistant; Visit Provider Physician Assistant
DX: G89.4 Chronic pain syndrome (principal); E03.9 Hypothyroidism, unspecified; F31.9 Bipolar disorder, unspecified; E78.2 Mixed hyperlipidemia
CPT/HCPCS: 80053; 80061; 80178; 84443; 85025

== ENCOUNTER → 2022-02-15 11:50 | Outpatient (CLI) | payer MEDICARE, SELFPAY ==
[2022-02-15 12:52] LABS: BUN Creatinine Ratio 22.5 (6-22); Blood Urea Nitrogen 18 mg/dL (9-20); Estimated Glomerular Filt Rate > 60.0 mL/min (>60)
== END ==
PROVIDERS: Family Provider Physician Assistant; PCP Physician Assistant; Referring Provider Psychiatry & Neurology Psychiatry; Visit Provider Psychiatry & Neurology Psychiatry
DX: F31.75 Bipolar disorder, in partial remission, most recent episode depressed (principal); G25.1 Drug-induced tremor; F90.9 Attention-deficit hyperactivity disorder, unspecified type; F40.10 Social phobia, unspecified; Z51.81 Encounter for therapeutic drug level monitoring
CPT/HCPCS: 36415; 82565; 84520; 99214

== ENCOUNTER → 2022-02-24 11:51 | Outpatient (CLI) | payer MEDICARE, SELFPAY ==
[2022-02-24 13:10] LABS: Lithium 0.6 mmol/L (0.6-1.2)
== END ==
PROVIDERS: Family Provider Physician Assistant; PCP Physician Assistant; Referring Provider Psychiatry & Neurology Psychiatry; Visit Provider Psychiatry & Neurology Psychiatry
DX: F31.75 Bipolar disorder, in partial remission, most recent episode depressed (principal); G25.1 Drug-induced tremor; Z51.81 Encounter for therapeutic drug level monitoring
CPT/HCPCS: 36415; 80178

== ENCOUNTER → 2023-11-06 10:16 | Outpatient (CLI) | payer MEDICARE, SELFPAY ==
[2023-11-06 11:03] LABS: Alanine Aminotransferase 55 IU/L (<50); Albumin 4.1 g/dL (3.5-5.0); Albumin Globulin Ratio 1.1 (1.0-2.8); Alkaline Phosphatase 56 U/L (38-126); Aspartate Aminotransferase 37 IU/L (17-59); BUN Creatinine Ratio 15.5 (6-22); Bilirubin Total 0.8 mg/dL (0.2-1.3); Blood Urea Nitrogen 13 mg/dL (9-20); Calcium 9.7 mg/dL (8.4-10.2); Carbon Dioxide 24 mmol/L (22-32); Chloride 105 mmol/L (98-107); Estimated Glomerular Filt Rate > 60 mL/min (>60); Globulin 3.8 g/dL (1.7-4.1); Glucose 99 mg/dL (70-100); HEMOLYSIS < 15 (0-50); Potassium 4.1 mmol/L (3.4-5.1); Sodium 136 mmol/L (137-145); Total Protein 7.9 g/dL (6.3-8.2)
[2023-11-06 11:10] LABS: Lithium 0.9 mmol/L (0.6-1.2)
[2023-11-06 11:50] LABS: Thyroid Stimulating Hormone 2.42 uIU/mL (0.47-4.68)
== END ==
PROVIDERS: Family Provider Physician Assistant; PCP Physician Assistant; Referring Provider Psychiatry & Neurology Psychiatry; Visit Provider Psychiatry & Neurology Psychiatry
DX: F31.75 Bipolar disorder, in partial remission, most recent episode depressed (principal); Z79.899 Other long term (current) drug therapy
CPT/HCPCS: 36415; 80053; 80178; 84439; 84443

== ENCOUNTER → 2024-10-08 07:36 | Outpatient (CLI) | payer MEDICARE, SELFPAY ==
[2024-10-08 08:55] LABS: Lithium 0.7 mmol/L (0.6-1.2)
[2024-10-08 08:56] LABS: Alanine Aminotransferase 54 IU/L (<50); Albumin 4.3 g/dL (3.5-5.0); Alkaline Phosphatase 60 U/L (38-126); Aspartate Aminotransferase 36 IU/L (17-59); Bilirubin Total 0.7 mg/dL (0.2-1.3); Blood Urea Nitrogen 10 mg/dL (9-20); Calcium 9.8 mg/dL (8.4-10.2); Carbon Dioxide 28 mmol/L (22-32); Chloride 103 mmol/L (98-107); Estimated Glomerular Filt Rate > 60 mL/min (>60); Glucose 94 mg/dL (70-100); HEMOLYSIS < 15 (0-50); Potassium 4.7 mmol/L (3.4-5.1); Sodium 138 mmol/L (137-145); Total Protein 7.4 g/dL (6.3-8.2)
[2024-10-08 08:57] LABS: Albumin Globulin Ratio 1.4 (1.0-2.8); Globulin 3.1 g/dL (1.7-4.1)
== END ==
PROVIDERS: Family Provider Physician Assistant; PCP Physician Assistant; Referring Provider Psychiatry & Neurology Psychiatry; Visit Provider Psychiatry & Neurology Psychiatry
DX: F31.75 Bipolar disorder, in partial remission, most recent episode depressed (principal); G25.1 Drug-induced tremor; Z79.899 Other long term (current) drug therapy
CPT/HCPCS: 36415; 80053; 80178; 84443